=== PATIENT | female | born 1960 | race Caucasian/White ===

== ENCOUNTER 2018-10-20 05:23 | Emergency (ER) | payer MEDICARE, MEDICAID ==
[~2018-10-20] VITALS: Ht 162.6 cm; Wt 68.5 kg
[~2018-10-20 05:23] MED LIST: CLON0.5T PO; CLON0.5T11 PO; ILOP12TA2 PO; LAMO150T2 PO; OLAN5TAB3 PO; RISP2TAB3 PO; RISP4TAB2 PO; lithium
--- NOTE | 2018-10-20 05:59 | PHYS DOC ---
Past History Past Medical History: Asthma, Depression, Other (ADELFO YANES DO) Past Surgical History: Hysterectomy, Other (ADELFO YANES DO) Smoking: Cigarettes Alcohol Use: None Drug Use: None (ADELFO YANES DO) Adult General Chief Complaint Chief Complaint: ABDOMINAL PAIN [facility] HPI 57-year-old female presents via EMS with left lower quadrant abdominal pain. The patient states she began to get point tenderness in her left inguinal region that started yesterday. She does not remember doing anything in particular that caused the pain. The pain is mild not directly palpating. When you touch the area it is moderate in intensity. She denies fever or chills. She' s had no change in her bowel or bladder habits. She is on psychiatric medications and has been taking all medicines. (ADELFO YANES DO) Review of Systems Review of Systems Constitutional: Denies fever or chills [] Eyes: Denies change in visual acuity, redness, or eye pain [] HENT: Denies nasal congestion or sore throat [] Respiratory: Denies cough or shortness of breath [] Cardiovascular: No additional information not addressed in HPI [] GI: Left lower quadrant abdominal pain. Denies nausea, vomiting, bloody stools or diarrhea [] : Denies dysuria or hematuria [] Musculoskeletal: Denies back pain or joint pain [] Integument: Denies rash or skin lesions [] Neurologic: Denies headache, focal weakness or sensory changes [] Endocrine: Denies polyuria or polydipsia [] All other systems were reviewed and found to be within normal limits, except as documented in this note. (ADELFO YANES DO) Allergies Allergies Allergies Coded Allergies Type Severity Reaction Last Updated Verified chlorpromazine Allergy Intermediate Rash 07/01/16 Yes (ADELFO YANES DO) Physical Exam Physical Exam Constitutional: Well developed, well nourished, no acute distress, non-toxic appearance. [] HENT: Normocephalic, atraumatic, bilateral external ears normal, oropharynx moist, no oral exudates, nose normal. [] Eyes: PERRLA, EOMI, conjunctiva normal, no discharge. [] Neck: Normal range of motion, no tenderness, supple, no stridor. [] Cardiovascular:Heart rate regular rhythm, no murmur [] Lungs & Thorax: Bilateral breath sounds clear to auscultation [] Abdomen: Bowel sounds normal, soft, no pulsatile masses. Point tenderness over the left inguinal ligament area. No erythema or warmth. [] Skin: Warm, dry, no erythema, no rash. [] Back: No tenderness, no CVA tenderness. [] Extremities: No tenderness, no cyanosis, no clubbing, ROM intact, no edema. [] Neurologic: Alert and oriented X 3, normal motor function, normal sensory function, no focal deficits noted. [] Psychologic: Affect normal, judgement normal, mood normal. [] (ADELFO YANES DO) EKG EKG [] (ADELFO YANES DO) Radiology/Procedures Radiology/Procedures [] (ADELFO YANES DO) Course & Med Decision Making Course & Med Decision Making Pertinent Labs and Imaging studies reviewed. (See chart for details) The patient's labs and CT scan are pending. I am signing the patient out to Dr. Schwab at 0600. [] (ADELFO YANES DO) Course & Med Decision Making Evaluation of patient in ER showed 57-year-old female patient with complaining of left lower quadrant pain. Patient did not have bulging mass in the left inguinal area but CT showed a small bowel obstruction secondary to left inguinal hernia. Dr. Amezquita accepted admission to [facility] [id number] and on-call surgeon Dr. Max informed at 0 820. She became anxious after information for transferring [facility] and wanted to leave AMA but after talking to the patient and give her Ativan she agreed to stay. (CLAUDIA SCHWAB MD) Dragon Disclaimer Dragon Disclaimer This electronic medical record was generated, in whole or in part, using a voice recognition dictation system. (ADEFLO YANES DO) Departure Departure: Impression: Primary Impression: Small bowel obstruction Additional Impressions: Incarcerated left inguinal hernia Abdominal pain Schizoaffective disorder Dehydration Disposition: 02 XFER SHT-TRM HOSP (at 0805) Admitting Physician: Ronak Amezquita (accepted transfer to [facility] at 0804) (CLAUDIA SCHWAB MD) Condition: IMPROVED Referrals: SHANNON BALL APRN (PCP) Problem Qualifiers ADELFO YANES DO Oct 20, 2018 05:59 CLAUDIA SCHWAB MD Oct 20, 2018 07:46
[2018-10-20] MEDS ORDERED: ONDANSETRON PF 4 MG/2 ML VIAL. IV ONE (06:00)
[2018-10-20] MEDS ORDERED: IV NORMAL SALINE 1,000ML 1,000 ML IV ONE ×2 (06:00→08:15)
[2018-10-20 06:06] LABS: BASO # 0.1 x10^3/uL (0.0-0.2); BASO % 1 % (0-3); EOS # 0.1 x10^3/uL (0.0-0.7); EOS % 1 % (0-3); HEMATOCRIT 36.9 % (36.0-47.0); HEMOGLOBIN 12.3 g/dL (12.0-15.5); LYMPH # 1.8 x10^3/uL (1.0-4.8); LYMPH % 36 % (24-48); MEAN CORPUSCULAR HEMOGLOBIN 31 pg (25-35); MEAN CORPUSCULAR HGB CONC 33 g/dL (31-37); MEAN CORPUSCULAR VOLUME 93 fL (79-100); MONO # 0.6 x10^3/uL (0.0-1.1); MONO % 12 % (0-9); NEUT # 2.5 x10^3uL (1.8-7.7); NEUT % 51 % (31-73); PLATELET COUNT 383 x10^3/uL (140-400); RED BLOOD COUNT 3.98 x10^6/uL (3.50-5.40); RED CELL DISTRIBUTION WIDTH 15.3 % (11.5-14.5); WHITE BLOOD COUNT 4.9 x10^3/uL (4.0-11.0)
[2018-10-20 06:14] LABS: ALBUMIN 2.9 g/dL (3.4-5.0); ALBUMIN/GLOBULIN RATIO 0.8 (1.0-1.7); CALCIUM 8.4 mg/dL (8.5-10.1); CREATININE 0.9 mg/dL (0.6-1.0); GFR 64.5; POTASSIUM 4.3 mmol/L (3.5-5.1); TOTAL BILIRUBIN 0.4 mg/dL (0.2-1.0); TOTAL PROTEIN 6.4 g/dL (6.4-8.2)
[2018-10-20] MEDS ORDERED: CONTRAST GIVEN MC PRN (06:15)
[2018-10-20] MEDS ORDERED: IOHEXOL 300 MG/ML 75 ML VIAL. IV ONE (06:15)
[2018-10-20 06:57] LABS: BARBITURATES NEG (NEG); BENZODIAZEPINES NEG (NEG); CANNABINOIDS NEG (NEG); COCAINE NEG (NEG); METHADONE NEG (NEG); OPIATES NEG (NEG); PHENCYCLIDINE NEG (NEG)
[2018-10-20 07:01] LABS: AMPHETAMINE/METHAMPHETAMINE NEG (NEG)
[2018-10-20 07:02] LABS: BILIRUBIN,URINE NEG (NEG); CLARITY,URINE CLEAR; COLOR,URINE YELLOW; GLUCOSE,URINE NEG (NEG)
[2018-10-20 07:03] LABS: BACTERIA,URINE 0 /HPF (0-FEW); NITRITE,URINE NEG (NEG); RBC,URINE 0 /HPF (0-2); SQUAMOUS EPITHELIAL CELL,UR OCC /LPF; UROBILINOGEN,URINE 0.2 mg/dL (0.2 mg/dL); WBC,URINE OCC /HPF (0-4)
[2018-10-20] MEDS ORDERED: KETOROLAC 30 MG/ML VIAL. IV ONE (07:30)
[2018-10-20] MEDS ORDERED: KETOROLAC 30 MG/ML VIAL. ONE (07:33)
--- NOTE | 2018-10-20 07:59 | RAD ---
CT study of the abdomen and pelvis with contrast Clinical indications: Left lower quadrant abdominal pain. TECHNIQUE: After IV infusion of 75 cc of Omnipaque 300, helical CT scanning of the abdomen and pelvis was performed. No GI contrast was administered. This may decrease the sensitivity to detect GI tract pathology. PQRS compliance Statement One or more of the following individualized dose reduction techniques were utilized for this study: 1. Automated exposure control 2. Adjustment of the mA and/or kV according to patient size 3. Use of iterative reconstruction technique COMPARISON: October 18, 2012. FINDINGS: The liver and spleen and pancreas are normal. The gallbladder is surgically absent. No extra hepatic biliary ductal dilatation is seen. No adrenal mass is seen. Both kidneys are normal without hydronephrosis or hydroureter. Urinary bladder wall is smooth. No focal aneurysmal dilatation of the abdominal aorta is seen. No enlarged abdominal or pelvic lymphadenopathy is evident. A left inguinal hernia is seen containing a loop of small bowel. Bowel loops are dilated proximal to this point. Findings are consistent with a small bowel obstruction. Moderate amount of fecal retention is seen throughout the colon. No free fluid or free air or mesenteric edema is seen. The appendix is normal. No lung base consolidation is evident. Grade 1 anterolisthesis of L5-S1 is seen secondary to bilateral spondylolysis of L5. IMPRESSION: Small bowel obstruction secondary to a left inguinal hernia which contains a loop of small bowel. Electronically signed by: Mich Larson MD (10/20/2018 7:54 AM) [facility]
[2018-10-20] MEDS ORDERED: LORazepam 2 MG/ML VIAL ONE (08:13)
[2018-10-20] MEDS ORDERED: LORazepam 2 MG/ML VIAL IV ONE (08:15)
[2018-10-20 08:41] VITALS: BP 112/78
== END 2018-10-20 08:53 | disposition short-term general hospital (02) ==
LOC: ER 05:23
DX: K40.30 Unilateral inguinal hernia, with obstruction, without gangrene, not specified as recurrent (principal); F25.9 Schizoaffective disorder, unspecified; E86.0 Dehydration; J45.909 Unspecified asthma, uncomplicated; F32.9 Major depressive disorder, single episode, unspecified; F17.210 Nicotine dependence, cigarettes, uncomplicated; Z90.710 Acquired absence of both cervix and uterus; Z88.8 Allergy status to other drugs, medicaments and biological substances
CPT/HCPCS: 36415; 74177; 80053; 80307; 81001; 85025; 96361; 96374; 96375; 99285; J1885; J2060; Q9967; J7030

== ENCOUNTER 2018-11-15 17:34 | Emergency (ER) | payer MEDICARE, MEDICAID ==
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
[2018-11-15] MEDS ORDERED: IV RINGERS SOLUTION,LACTATED 1,000 ML IV SCH (18:18)
[2018-11-15 18:39] LABS: BASO # 0.1 x10^3/uL (0.0-0.2); BASO % 2 % (0-3); EOS % 1 % (0-3); HEMATOCRIT 42.3 % (36.0-47.0); HEMOGLOBIN 14.1 g/dL (12.0-15.5); LYMPH # 1.8 x10^3/uL (1.0-4.8); LYMPH % 43 % (24-48); MEAN CORPUSCULAR HEMOGLOBIN 31 pg (25-35); MEAN CORPUSCULAR HGB CONC 33 g/dL (31-37); MEAN CORPUSCULAR VOLUME 93 fL (79-100); MONO # 0.5 x10^3/uL (0.0-1.1); MONO % 11 % (0-9); NEUT # 1.8 x10^3uL (1.8-7.7); NEUT % 44 % (31-73); PLATELET COUNT 357 x10^3/uL (140-400); RED BLOOD COUNT 4.53 x10^6/uL (3.50-5.40); WHITE BLOOD COUNT 4.2 x10^3/uL (4.0-11.0)
[2018-11-15 18:56] LABS: ALBUMIN 3.4 g/dL (3.4-5.0); CALCIUM 9.4 mg/dL (8.5-10.1); CREATININE 0.8 mg/dL (0.6-1.0); DIRECT BILIRUBIN 0.1 mg/dL (0.0-0.2); GFR 73.7; POTASSIUM 4.2 mmol/L (3.5-5.1); TOTAL BILIRUBIN 0.6 mg/dL (0.2-1.0); TOTAL PROTEIN 7.3 g/dL (6.4-8.2)
[2018-11-15 20:10] LABS: SEDIMENTATION RATE 20 (0-25)
[2018-11-15 20:23] LABS: BARBITURATES NEG (NEG); BENZODIAZEPINES NEG (NEG); CANNABINOIDS NEG (NEG); COCAINE NEG (NEG); METHADONE NEG (NEG); OPIATES NEG (NEG); PHENCYCLIDINE NEG (NEG)
[2018-11-15 20:28] LABS: AMPHETAMINE/METHAMPHETAMINE NEG (NEG)
[2018-11-15 20:40] LABS: BACTERIA,URINE 0 /HPF (0-FEW); BILIRUBIN,URINE NEG (NEG); CLARITY,URINE HAZY; COLOR,URINE YELLOW; GLUCOSE,URINE NEG (NEG); NITRITE,URINE NEG (NEG); RBC,URINE 0 /HPF (0-2); SQUAMOUS EPITHELIAL CELL,UR OCC /LPF; UROBILINOGEN,URINE 0.2 mg/dL (0.2 mg/dL)
[2018-11-15 20:41] LABS: WBC,URINE OCC /HPF (0-4)
--- NOTE | 2018-11-15 22:31 | EKG ---
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 Electronically Signed On 11-18-2018 10:51:23 STOCK CONTROL SUPERVISOR by Pa Myles
[2018-11-16 03:15] VITALS: BP 169/83
--- NOTE | 2018-11-16 07:40 | RAD ---
PROCEDURE: PORTABLE CHEST 1V CLINICAL INDICATION: WHEEZE.PATIENT WOULD NOT ALLOW FOR REMOVAL OF BRA. COMPARISON: None FINDINGS: No pneumothorax identified. Cardiac and mediastinal contours unremarkable. No pulmonary consolidation or acute airspace disease. No acute osseous abnormalities identified. IMPRESSION: No pulmonary consolidation or acute airspace disease. Electronically signed by: Kenny Burnette DO (11/16/2018 7:37 AM) [facility]
== END 2018-11-16 04:27 | disposition short-term general hospital (02) ==
LOC: ER 17:34
DX: F23 Brief psychotic disorder (principal); F20.9 Schizophrenia, unspecified; F31.9 Bipolar disorder, unspecified; J45.909 Unspecified asthma, uncomplicated; R41.0 Disorientation, unspecified; F41.9 Anxiety disorder, unspecified; F17.210 Nicotine dependence, cigarettes, uncomplicated; Z88.8 Allergy status to other drugs, medicaments and biological substances
CPT/HCPCS: 36415; 71045; 80048; 80076; 80307; 81001; 82550; 83690; 83735; 83880; 84443; 84484; 85025; 85610; 85651; 85730; 93005; 96360; 99285; J7120; P9612

== ENCOUNTER 2019-02-02 20:05 | Emergency (ER) | payer MEDICARE, MEDICAID ==
[~2019-02-02] VITALS: Ht 162.6 cm; Wt 67.6 kg
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
[2019-02-02 20:19] VITALS: BP 162/85
== END 2019-02-02 20:31 | disposition left against medical advice (07) ==
LOC: ER 20:10
DX: M54.40 Lumbago with sciatica, unspecified side (principal); G89.29 Other chronic pain; F31.9 Bipolar disorder, unspecified; F20.9 Schizophrenia, unspecified; J45.909 Unspecified asthma, uncomplicated; F17.210 Nicotine dependence, cigarettes, uncomplicated; Z88.8 Allergy status to other drugs, medicaments and biological substances
CPT/HCPCS: 99281; 99283

== ENCOUNTER 2020-04-21 16:15 | Inpatient (IN) | payer MEDICARE, MEDICAID ==
[~2020-04-21] VITALS: Ht 162.6 cm; Wt 66.7 kg
[~2020-04-21 16:15] MED LIST changes: -CLON0.5T11 PO; +CLON0.5T4 PO; -LAMO150T2 PO; +LAMO150T4 PO
[2020-04-21] MEDS ORDERED: IV NORMAL SALINE 1,000ML 1,000 ML IV ONE ×2 (16:30→19:15)
[2020-04-21] MEDS ORDERED: KETOROLAC 30 MG/ML VIAL. IVP ONE (17:15)
[2020-04-21] MEDS ORDERED: MORPHINE SULFATE 2 MG/ML DISP.SYRIN. IV ONE (17:15)
[2020-04-21] MEDS ORDERED: ONDANSETRON PF 4 MG/2 ML VIAL. IVP ONE (17:15)
[2020-04-21 17:43] LABS: BASO # 0.1 x10^3/uL (0.0-0.2); BASO % 1 % (0-3); EOS % 0 % (0-3); HEMOGLOBIN 13.6 g/dL (12.0-15.5); LYMPH # 2.3 x10^3/uL (1.0-4.8); LYMPH % 20 % (24-48); MEAN CORPUSCULAR HEMOGLOBIN 32 pg (25-35); MEAN CORPUSCULAR HGB CONC 33 g/dL (31-37); MEAN CORPUSCULAR VOLUME 97 fL (79-100); MONO # 1.4 x10^3/uL (0.0-1.1); MONO % 13 % (0-9); NEUT # 7.5 x10^3uL (1.8-7.7); NEUT % 66 % (31-73); PLATELET COUNT 219 x10^3/uL (140-400); RED BLOOD COUNT 4.22 x10^6/uL (3.50-5.40); RED CELL DISTRIBUTION WIDTH 14.5 % (11.5-14.5); WHITE BLOOD COUNT 11.3 x10^3/uL (4.0-11.0)
--- NOTE | 2020-04-21 17:45 | PHYS DOC ---
Past History Past Medical History: Asthma, Bipolar, Cancer, Depression, Schizophrenia, Other Past Surgical History: Hysterectomy, Other Smoking: Cigarettes Alcohol Use: None Drug Use: None General Adult EDM: Chief Complaint: LOWER EXT PAIN HPI: HPI: 59-year-old female presents via EMS for being outside. Patient left her nursing care facility yesterday AMA. She walked around all night long and was walking around today. She just wanted to go back to house here in [place]. She was picked up by EMS wet and fatigued, but alert, oriented and acting normally. She is reported to have schizophrenia, but the patient denies this. She denies any hallucinations at this time. Her only complaint is that her feet hurt from walking around. She was wearing shoes that are now wet. It is unclear if the patient has a place to go. Review of Systems: Review of Systems: Constitutional: Denies fever or chills Eyes: Denies change in visual acuity HENT: Denies nasal congestion or sore throat Respiratory: Denies cough or shortness of breath Cardiovascular: Denies chest pain or edema GI: Denies abdominal pain, nausea, vomiting, bloody stools or diarrhea : Denies dysuria Musculoskeletal: Bilateral foot pain Integument: Denies rash Neurologic: Denies headache, focal weakness or sensory changes Endocrine: Denies polyuria or polydipsia Lymphatic: Denies swollen glands Psychiatric: Denies depression or anxiety Heart Score: Risk Factors: Risk Factors: DM, Current or recent (<one month) smoker, HTN, HLP, family history of CAD, obesity. Risk Scores: Score 0 - 3: 2.5% MACE over next 6 weeks - Discharge Home Score 4 - 6: 20.3% MACE over next 6 weeks - Admit for Clinical Observation Score 7 - 10: 72.7% MACE over next 6 weeks - Early Invasive Strategies Current Medications: Current Meds: Current Medications Medications (Trade) Dose Ordered Sig/Rolf Start Time Stop Time Status Last Admin Dose Admin Ketorolac Tromethamine (Toradol 30mg Vial) 30 mg 1X ONCE 04/21/20 17:15 04/21/20 17:32 DC Morphine Sulfate (Morphine 2mg Syringe) 2 mg 1X ONCE 04/21/20 17:15 04/21/20 17:32 DC Ondansetron HCl (Zofran) 4 mg 1X ONCE 04/21/20 17:15 04/21/20 17:32 DC Sodium Chloride 1,000 ml @ 1,000 mls/hr 1X ONCE 04/21/20 16:30 04/21/20 17:29 DC 04/21/20 17:24 1,000 MLS/HR Allergies: Allergies: Allergies Coded Allergies Type Severity Reaction Last Updated Verified chlorpromazine Allergy Intermediate Rash 07/01/16 Yes Physical Exam: PE: Constitutional: Well developed, well nourished, no acute distress, non-toxic appearance. [] HENT: Normocephalic, atraumatic, bilateral external ears normal, oropharynx moist, no oral exudates, nose normal. [] Eyes: PERRLA, EOMI, conjunctiva normal, no discharge. [] Neck: Normal range of motion, no tenderness, supple, no stridor. [] Cardiovascular:Heart rate regular rhythm, no murmur [] Lungs & Thorax: Bilateral breath sounds clear to auscultation [] Abdomen: Bowel sounds normal, soft, no tenderness, no masses, no pulsatile masses. [] Skin: Warm, dry, no erythema, no rash. [] Back: No tenderness, no CVA tenderness. [] Extremities: No tenderness, no cyanosis, no clubbing, ROM intact, no edema. [] Neurologic: Alert and oriented X 3, normal motor function, normal sensory function, no focal deficits noted. [] Psychologic: Affect normal, judgement normal, mood normal. [] EKG: EKG: [] Radiology/Procedures: Radiology/Procedures: [] Course & Med Decision Making: Course & Med Decision Making Pertinent Labs and Imaging studies reviewed. (See chart for details) The patient's creatinine is 1.8. This is a significant change from her baseline according to her records. This is likely due to acute dehydration. I have given her a liter normal saline in the emergency room. I will admit her to the hospital for further hydration and management. I spoke with Dr. Amezquita and he has accepted the patient for admission. Patient has refused to be admitted. I asked her where she is gone ago and she insists that she has property to go to. The patient is alert and oriented. I do not feel that I can force her to stay here. We will attempt to give her an additional liter of fluid. Then she will be discharged. The patient has changed her mind again and has agreed to be admitted to the hospital. Dr. Amezquita is aware. I have given the patient 2 mg of Ativan IV as well as a nicotine patch. [] Dayne Disclaimer: Dayne Disclaimer: This electronic medical record was generated, in whole or in part, using a voice recognition dictation system. Departure Departure: Impression: Primary Impression: Dehydration Additional Impression: Acute kidney injury Disposition: HOME/RESIDENCE PRIOR TO ADM Condition: STABLE Referrals: SHANNON BALL APRN (PCP) Justification of Admission: Justification of Admission: Justification of Admission Dx: Comment: Comments: Acute kidney injury, dehydration ADELFO YANES DO Apr 21, 2020 17:45
[2020-04-21 17:54] LABS: CALCIUM 9.2 mg/dL (8.5-10.1); CREATININE 1.8 mg/dL (0.6-1.0); GFR 28.8; POTASSIUM 4.4 mmol/L (3.5-5.1)
[2020-04-21 18:00] LABS: ALBUMIN 4.2 g/dL (3.4-5.0); ALBUMIN/GLOBULIN RATIO 1.1 (1.0-1.7); TOTAL BILIRUBIN 1.1 mg/dL (0.2-1.0)
[2020-04-21 18:02] LABS: BILIRUBIN,URINE NEG (NEG); CLARITY,URINE CLEAR; COLOR,URINE YELLOW; GLUCOSE,URINE NEG (NEG)
[2020-04-21 18:03] LABS: BACTERIA,URINE 0 /HPF (0-FEW); HYALINE CASTS, URINE FEW /HPF; NITRITE,URINE NEG (NEG); RBC,URINE OCC /HPF (0-2); SQUAMOUS EPITHELIAL CELL,UR OCC /LPF; UROBILINOGEN,URINE 0.2 mg/dL (0.2 mg/dL); WBC,URINE OCC /HPF (0-4)
[2020-04-21] MEDS ORDERED: NICOTINE 21MG PATCH. TD ONE (18:45)
[2020-04-21 19:56] LABS: % LYMPHS 24 % (24-48); % MONOS 10 % (0-10); % SEGS 66 % (35-66); PLT ESTIMATE ADEQUATE (ADEQUATE)
[2020-04-21 21:59] VITALS: BP 108/66
--- NOTE | 2020-04-21 22:46 | NUR ---
The patient, COLLIN TEMPLE, 59 y/o, F admitted by DUYEN HURTADO MD, was given written information regarding hospital policies, unit procedures and contact persons. Valuables were checked and left in room with pt. Nursing Note The patient arrived via EMS. The patient is alert and oriented to self, Year, ant that she is in [place]. The patient appears to have walked from [facility] where she is a resident a a usp. The patient is aware that walking a distance like that is unsafe however the patient was unable to give a safe plan for what she would do upon arrival to [place]. The patient states "I have land here in [place] and if I don't have a house to stay in I will just stay outside but the rain might be a problem." The patient acknowledges that this is an unsafe plan. The patient skin appears intact however she appears to have a reddened area/rash on her chest. The patient states "The rash is from the radiation"; at this time this nurse cannot verify if the patients statement regarding the rash is correct. Lung sounds are clear upon initial assessment with no difficulty with respirations, patient states that she has a cough from time to time and that it occasionally produces a brown/red colored solution(none noted at this time). The patient has active bowel sounds x4 and states she has had x1 BM in the last 24 hours but states she feels constipated however she states she would like to wait until the morning before trying a laxative. The patient states that she has urgency with urinating upon awaking. Heart sounds are regular and pulses are equal x4 extremities. Patient did not arrive with current med list however this nurse contacted the facility that she currently resides at( [facility] ) and they have been provided with our fax number to provide a current med list. The patient is currently resting in her bed in her room.
[2020-04-21 23:34] VITALS: BP 114/67
[2020-04-21] MEDS ORDERED: IV NORMAL SALINE 1,000ML 1,000 ML IV SCH (23:45)
[2020-04-22] MEDS: IV NORMAL SALINE 1,000ML 1,000 ML IV SCH ×2 (02:30→08:17)
--- NOTE | 2020-04-22 02:53 | NUR ---
Call placed to [facility] to obtain current medication list. Message left for note.
[2020-04-22] MEDS ORDERED: ZIPR20VI IM (05:13)
[2020-04-22] MEDS ORDERED: GABA100C81 PO (05:13)
[2020-04-22] MEDS ORDERED: ARIP10TA9 PO (05:13)
[2020-04-22] MEDS ORDERED: RISP3TAB3 PO (05:13)
[2020-04-22] MEDS ORDERED: DOCU-109 PO (05:13)
[2020-04-22] MEDS ORDERED: CARI4.5C PO (05:13)
[2020-04-22] MEDS ORDERED: LINA145C PO (05:13)
[2020-04-22] MEDS ORDERED: QUET100T4 PO (05:13)
[2020-04-22] MEDS ORDERED: ACET325T9 PO (05:13)
[2020-04-22] MEDS ORDERED: LORA-254 PO (05:13)
[2020-04-22 06:10] LABS: BASO # 0.1 x10^3/uL (0.0-0.2); BASO % 1 % (0-3); EOS # 0.1 x10^3/uL (0.0-0.7); EOS % 2 % (0-3); LYMPH # 2.1 x10^3/uL (1.0-4.8); LYMPH % 36 % (24-48); MEAN CORPUSCULAR HEMOGLOBIN 32 pg (25-35); MEAN CORPUSCULAR HGB CONC 33 g/dL (31-37); MEAN CORPUSCULAR VOLUME 97 fL (79-100); MONO # 0.6 x10^3/uL (0.0-1.1); MONO % 10 % (0-9); NEUT % 51 % (31-73); PLATELET COUNT 204 x10^3/uL (140-400); RED BLOOD COUNT 4.02 x10^6/uL (3.50-5.40); RED CELL DISTRIBUTION WIDTH 14.5 % (11.5-14.5); WHITE BLOOD COUNT 5.9 x10^3/uL (4.0-11.0)
[2020-04-22 06:33] LABS: ALBUMIN 3.4 g/dL (3.4-5.0); CALCIUM 8.5 mg/dL (8.5-10.1); CREATININE 1.1 mg/dL (0.6-1.0); GFR 50.8; POTASSIUM 3.7 mmol/L (3.5-5.1); TOTAL BILIRUBIN 1.2 mg/dL (0.2-1.0); TOTAL PROTEIN 6.9 g/dL (6.4-8.2)
[2020-04-22] MEDS ORDERED: ZIPRASIDONE IM 20 MG VIAL. IM PRN (07:45)
[2020-04-22] MEDS ORDERED: LORazepam 0.5 MG TABLET PO PRN (08:15)
[2020-04-22] MEDS ORDERED: ARIPiprazole 10 MG TABLET PO SCH (09:00)
[2020-04-22] MEDS ORDERED: GABAPENTIN 100 MG CAPSULE. PO SCH (09:00)
[2020-04-22] MEDS ORDERED: DOCUSATE SODIUM 100 MG CAPSULE PO SCH (09:00)
[2020-04-22] MEDS ORDERED: QUEtiapine 100 MG TABLET. PO SCH (09:00)
[2020-04-22] MEDS ORDERED: CARIPRAZINE HYDROCHLORIDE 4.5 MG PO SCH (09:00)
[2020-04-22] MEDS ORDERED: ACETAMINOPHEN 325 MG TABLET PO SCH (09:00)
--- NOTE | 2020-04-22 09:00 | NUR ---
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 HARSHA KERR.
--- NOTE | 2020-04-22 10:00 | NUR ---
NURSING NOTE TACOS PT HAS BEEN UP IN THE HALLWAY THIS AM, STATING THAT SHE IS LEAVING, WANTS HER CLOTHES AND SHOES. PT PULLED OFF RETURN AGENT AIRPORT THIS AM AND TOOK OUT HER IV. PT PUT ON HER CLOTHES AND SHOES AND STATED SHE WAS LEAVING AND WAS HEADED FOR THE DOOR. PT HAS BEEN TOLD ABOUT THE RISKS AND CONSEQUENCES INVOLVED IN LEAVING THE HOSPITAL AT THIS TIME, THE BENEFITS OF CONTINUED TREATMENT AND HOSPITALIZATIONS. PT ESCORTED OUT BY SECURITY THIS AM. HARSHA KERR.
[2020-04-22] MEDS ORDERED: LUBIPROSTONE 24 MCG CAPSULE PO SCH (17:00)
[2020-04-22] MEDS ORDERED: risperiDONE 1 MG TABLET. PO SCH (21:00)
== END 2020-04-22 10:00 | disposition left against medical advice (07) | DRG 684 ==
LOC: ER 16:15 → 1 SOUTH 18:30 → ER 21:33
PROVIDERS: ADMIT Internal Medicine; ATTEND Internal Medicine
DX: N17.9 Acute kidney failure, unspecified (principal); E86.0 Dehydration; F20.9 Schizophrenia, unspecified; J45.909 Unspecified asthma, uncomplicated; Z87.891 Personal history of nicotine dependence; Z90.710 Acquired absence of both cervix and uterus; F31.9 Bipolar disorder, unspecified; Z53.29 Procedure and treatment not carried out because of patient's decision for other reasons
CPT/HCPCS: 36415; 80053; 81001; 85007; 85025; 96361; 96374; 99406; J2060; 99285-25; J7030

== ENCOUNTER 2020-04-23 04:05 | Emergency (ER) | payer MEDICARE, MEDICAID ==
[~2020-04-23] VITALS: Ht 162.6 cm; Wt 66.7 kg
[~2020-04-23 04:05] MED LIST changes: +ACET325T9 PO; +ARIP10TA9 PO; +CARI4.5C PO; +DOCU-109 PO; +GABA100C81 PO; +LINA145C PO; +LORA-254 PO; +QUET100T4 PO; +RISP3TAB3 PO; +ZIPR20VI IM
--- NOTE | 2020-04-23 04:44 | PHYS DOC ---
Past History Past Medical History: Depression, Schizophrenia (CHANTALE RAI MD) Past Surgical History: No Surgical History (CHANTALE RAI MD) Smoking: Cigarettes Alcohol Use: None Drug Use: None (CHANTALE RAI MD) General Adult EDM: Chief Complaint: FOOT INJURY PAIN HPI: HPI: Patient is a 59-year-old female who presents via EMS with a chief complaint of bilateral foot pain. Patient states that she walked from [place] yesterday and is now having foot pain. Patient states her feet are wet and they have blisters and she needs gauze on her feet and new socks. According to records in the computer the patient was in the ER on the afternoon of April 21 with a similar story and was admitted to the hospital for acute kidney injury. Patient left AMA on April 22 in the morning. At that time the creatinine had normalized. Patient appears somewhat confused this and is inconsistent in her story about when she walked here from [place]. Patient repeatedly says she does not want to go back to a facility in [place]. Patient states she was at her property and walked to the police station so that she get a ride to the hospital tonight. Patient denies any fever cough or trouble breathing. Patient will not answer questions about hallucinations or suicidal ideation to me. History and physical is limited due to poor cooperation/altered mental status (CHANTALE RAI MD) Review of Systems: Review of Systems: Constitutional: Denies fever or chills Eyes: Denies change in visual acuity HENT: Denies nasal congestion or sore throat Respiratory: Denies cough or shortness of breath Cardiovascular: Denies chest pain or edema GI: Denies abdominal pain, nausea, vomiting, bloody stools or diarrhea : Denies dysuria but complains of chronic urinary incontinence Musculoskeletal: Denies back pain but complains of bilateral feet pain Integument: Denies rash Neurologic: Denies headache, focal weakness or sensory changes Endocrine: Denies polyuria or polydipsia Lymphatic: Denies swollen glands Psychiatric: Refuses to answer questions about hallucinations or suicidal ideation Review of systems Limited by altered mental status (CHANTALE RAI MD) Heart Score: Risk Factors: Risk Factors: DM, Current or recent (<one month) smoker, HTN, HLP, family history of CAD, obesity. Risk Scores: Score 0 - 3: 2.5% MACE over next 6 weeks - Discharge Home Score 4 - 6: 20.3% MACE over next 6 weeks - Admit for Clinical Observation Score 7 - 10: 72.7% MACE over next 6 weeks - Early Invasive Strategies (CHANTALE RAI MD) Allergies: Allergies: Allergies Coded Allergies Type Severity Reaction Last Updated Verified chlorpromazine Allergy Intermediate Rash 07/01/16 Yes (CHANTALE RAI MD) Physical Exam: PE: Constitutional: Disheveled, no acute distress HENT: Normocephalic, atraumatic, bilateral external ears normal, no trismus, nose normal. [] Eyes: Extraocular movement intact, no drainage or discharge Neck: Normal range of motion, no tenderness, supple, no stridor. [] Cardiovascular:Heart rate regular rhythm, Lungs & Thorax: No respiratory distress Abdomen: soft, no distention Skin: Warm, dry, no erythema, no rash. [] Scattered blisters on bilateral feet without signs of cellulitis Back: No tenderness, no CVA tenderness. [] Extremities: No tenderness, no cyanosis, no clubbing, ROM intact, no edema. [] Feet with bilateral blisters. Neurovascular intact. Neurologic: Alert and but confused to the month, confused to events of the last couple days normal motor function, normal sensory function, no focal deficits noted. [] Psychologic: Tangential ideas, confusion (CHANTALE RAI MD) Current Patient Data: Labs: Laboratory Tests Test 04/23/20 05:12 White Blood Count 7.7 x10^3/uL Red Blood Count 3.98 x10^6/uL Hemoglobin 13.2 g/dL Hematocrit 38.8 % Mean Corpuscular Volume 98 fL Mean Corpuscular Hemoglobin 33 pg Mean Corpuscular Hemoglobin Concent 34 g/dL Red Cell Distribution Width 14.0 % Platelet Count 194 x10^3/uL Neutrophils (%) (Auto) 68 % Lymphocytes (%) (Auto) 19 % Monocytes (%) (Auto) 10 % Eosinophils (%) (Auto) 2 % Basophils (%) (Auto) 1 % Neutrophils # (Auto) 5.2 x10^3uL Lymphocytes # (Auto) 1.5 x10^3/uL Monocytes # (Auto) 0.8 x10^3/uL Eosinophils # (Auto) 0.1 x10^3/uL Basophils # (Auto) 0.0 x10^3/uL (CHANTALE RAI MD) EKG: EKG: [] EKG interpreted by me normal sinus rhythm with a rate of 72 right bundle branch block normal axis nonspecific ST changes. (CHANTALE RAI MD) Radiology/Procedures: Radiology/Procedures: [] (CHANTALE RAI MD) Course & Med Decision Making: Course & Med Decision Making Pertinent Labs and Imaging studies reviewed. (See chart for details) [] 59-year-old female arrives via EMS with chief complaint of foot pain. Patient appears disheveled and disorganized. Patient has a history of schizophrenia and I feel she needs a behavioral health assessment. EKG shows right bundle branch block CBC is unremarkable. Remaining labs are pending and care will be signed over to Dr. Yanes with with follow-up on remaining labs and a behavioral health assessment. (CHANTALE RAI MD) Course & Med Decision Making The patient was getting a psychiatric evaluation. Before the screener can inform us of his/her opinion the patient left AMA. (ADELFO YANES DO) Dragon Disclaimer: Dragon Disclaimer: This electronic medical record was generated, in whole or in part, using a voice recognition dictation system. (CHANTALE RAI MD) Departure Departure: Impression: Primary Impression: Schizophrenia Additional Impression: Bilateral foot pain Disposition: 07 AGAINST MEDICAL ADVICE Condition: GUARDED Referrals: SHANNON BALL APRN (PCP) Justification of Admission: Justification of Admission: Justification of Admission Dx: N/A (CHANTALE RAI MD) CHANTALE RAI MD Apr 23, 2020 04:44 ADELFO YANES DO Apr 23, 2020 17:23
[2020-04-23 05:38] LABS: BASO % 1 % (0-3); EOS # 0.1 x10^3/uL (0.0-0.7); EOS % 2 % (0-3); HEMATOCRIT 38.8 % (36.0-47.0); HEMOGLOBIN 13.2 g/dL (12.0-15.5); LYMPH # 1.5 x10^3/uL (1.0-4.8); LYMPH % 19 % (24-48); MEAN CORPUSCULAR HEMOGLOBIN 33 pg (25-35); MEAN CORPUSCULAR HGB CONC 34 g/dL (31-37); MEAN CORPUSCULAR VOLUME 98 fL (79-100); MONO # 0.8 x10^3/uL (0.0-1.1); MONO % 10 % (0-9); NEUT # 5.2 x10^3uL (1.8-7.7); NEUT % 68 % (31-73); PLATELET COUNT 194 x10^3/uL (140-400); RED BLOOD COUNT 3.98 x10^6/uL (3.50-5.40); WHITE BLOOD COUNT 7.7 x10^3/uL (4.0-11.0)
[2020-04-23 05:43] LABS: BARBITURATES NEG (NEG); BENZODIAZEPINES NEG (NEG); BILIRUBIN,URINE NEG (NEG); CANNABINOIDS NEG (NEG); CLARITY,URINE HAZY; COCAINE NEG (NEG); COLOR,URINE YELLOW; GLUCOSE,URINE NEG (NEG); METHADONE NEG (NEG); NITRITE,URINE NEG (NEG); OPIATES NEG (NEG); PHENCYCLIDINE NEG (NEG); UROBILINOGEN,URINE 0.2 mg/dL (0.2 mg/dL)
[2020-04-23 05:44] LABS: CREATININE 0.9 mg/dL (0.6-1.0); GFR 64.1; POTASSIUM 3.9 mmol/L (3.5-5.1)
[2020-04-23 05:44] LABS: AMPHETAMINE/METHAMPHETAMINE NEG (NEG); BACTERIA,URINE 0 /HPF (0-FEW); SQUAMOUS EPITHELIAL CELL,UR MOD /LPF; WBC,URINE RARE /HPF (0-4)
[2020-04-23 05:52] LABS: ALBUMIN 3.7 g/dL (3.4-5.0); ALBUMIN/GLOBULIN RATIO 1.1 (1.0-1.7); MAGNESIUM 2.1 mg/dL (1.8-2.4); TOTAL BILIRUBIN 0.9 mg/dL (0.2-1.0); TOTAL PROTEIN 7.2 g/dL (6.4-8.2)
[2020-04-23 06:31] VITALS: BP 115/73
--- NOTE | 2020-04-23 20:28 | EKG ---
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
== END 2020-04-23 08:50 | disposition left against medical advice (07) ==
LOC: ER 04:05
DX: R41.0 Disorientation, unspecified (principal); F20.9 Schizophrenia, unspecified; M79.672 Pain in left foot; M79.671 Pain in right foot; F32.9 Major depressive disorder, single episode, unspecified; F17.210 Nicotine dependence, cigarettes, uncomplicated; Z20.828 Contact with and (suspected) exposure to other viral communicable diseases; Z88.8 Allergy status to other drugs, medicaments and biological substances
CPT/HCPCS: 36415; 80053; 80307; 81001; 83735; 85025; 93005; 99284; G0480; U0003

== ENCOUNTER 2020-04-23 11:19 | Emergency (ER) | payer MEDICARE, MEDICAID ==
[~2020-04-23] VITALS: Ht 162.6 cm; Wt 66.7 kg
--- NOTE | 2020-04-23 11:27 | PHYS DOC ---
Past History Past Medical History: Cancer, Depression, Schizophrenia (ADELFO YANES DO) Past Medical History: Anxiety, Bipolar, Schizophrenia (FRITZ MYERS MD) Past Surgical History: No Surgical History (ADELFO YANES DO) Smoking: Cigarettes Alcohol Use: None Drug Use: None (ADELFO YANES DO) Smoking: Cigarettes (FRITZ MYERS MD) General Adult EDM: Chief Complaint: PSYCH EVALUATION HPI: HPI: 59-year-old female returns the emergency room for the second time today. The patient left AMA just after her psychiatric screen before we got results. She was deemed to need involuntary admission. She was already out of the building before we were made aware of this. The patient went to an old friend's house. This friend negotiated getting the patient back to the emergency room. The patient still has flight of ideas and talks about wanting to stay in [place], but has nowhere to go and does not have a plan. She is intermittently emotional. She does not express any new complaints other than her feet hurting for walking around so much. (ADELFO YANES DO) Review of Systems: Review of Systems: Constitutional: Denies fever or chills Eyes: Denies change in visual acuity HENT: Denies nasal congestion or sore throat Respiratory: Denies cough or shortness of breath Cardiovascular: Denies chest pain or edema GI: Denies abdominal pain, nausea, vomiting, bloody stools or diarrhea : Denies dysuria Musculoskeletal: Denies back pain or joint pain Integument: Denies rash Neurologic: Denies headache, focal weakness or sensory changes Endocrine: Denies polyuria or polydipsia Lymphatic: Denies swollen glands Psychiatric: Anxious (ADELFO YANES DO) Heart Score: Risk Factors: Risk Factors: DM, Current or recent (<one month) smoker, HTN, HLP, family history of CAD, obesity. Risk Scores: Score 0 - 3: 2.5% MACE over next 6 weeks - Discharge Home Score 4 - 6: 20.3% MACE over next 6 weeks - Admit for Clinical Observation Score 7 - 10: 72.7% MACE over next 6 weeks - Early Invasive Strategies (ADELFO YANES DO) Allergies: Allergies: Allergies Coded Allergies Type Severity Reaction Last Updated Verified chlorpromazine Allergy Intermediate Rash 07/01/16 Yes (YANES,ADELFO DO) Physical Exam: PE: Constitutional: Well developed, well nourished, disheveled outer appearance, no acute distress, non-toxic appearance. [] HENT: Normocephalic, atraumatic, bilateral external ears normal, oropharynx moist, no oral exudates, nose normal. [] Eyes: PERRLA, EOMI, conjunctiva normal, no discharge. [] Neck: Normal range of motion, no tenderness, supple, no stridor. [] Cardiovascular:Heart rate regular rhythm, no murmur [] Lungs & Thorax: Bilateral breath sounds clear to auscultation [] Abdomen: Bowel sounds normal, soft, no tenderness, no masses, no pulsatile masses. [] Skin: Warm, dry, no erythema, no rash. [] Back: No tenderness, no CVA tenderness. [] Extremities: No tenderness, no cyanosis, no clubbing, ROM intact, no edema. [] Neurologic: Alert and oriented X 3, normal motor function, normal sensory function, no focal deficits noted. [] Psychologic: Affect pressured, judgment compromised, intermittently tearful, anxious, flight of ideas [] (ADELFO YANES DO) PE: Constitutional: Well developed, well nourished, anxious HENT: Normocephalic, atraumatic Eyes: Conjunctiva normal, no discharge Neck: Normal range of motion, supple Lungs & Thorax: No respiratory distress, equal chest rise and fall Neurologic: Alert, no focal deficits noted Psychologic: Affect anxious, paranoid, judgment abnormal (UMER CRISTINA DO) EKG: EKG: [] (ADELFO YANES DO) Radiology/Procedures: Radiology/Procedures: [] (ADELFO YANES DO) Course & Med Decision Making: Course & Med Decision Making Pertinent Labs and Imaging studies reviewed. (See chart for details) The patient psychiatric evaluation has placed her in an involuntary hold. I have given the patient 2 different doses of 5 mg of Haldol. The second time she is very agitated and I had added 2 mg of Ativan. She just gets worked up and talks about "needing to go" even though she realizes there is not anywhere for her to go. She has been mostly cooperative. I am signing the patient out to Dr. Cristina at 1800. He will continue care for the patient while we wait for placement. [] (ADELFO YANES DO) Course & Med Decision Making 1800- Sign out received from Dr. Yanes for psychiatric hold patient. Reports patient is currently involuntary and awaiting placement. Earlier visit labs reviewed. Patient seen and evaluated by myself. Awaiting accepting psychiatric facility/physician for transfer. Patient frequency talks out loud and becomes fixated on wanting her clothing so she can leave. 1999- Patient became more fixated on needing to leave. Patient given Ativan 2mg IVP for agitation and staff submarine warfare officer able to coax patient back into her room. 2129- Patient sleeping soundly. 8: 0400- Patient became more agitated again. Ativan 2mg provided. 599- Sign out given to Dr. Quiroga for further evaluation and further disposition. (UMER CRISTINA DO) Course & Med Decision Making Shift change, resting. Check out, still awaiting involuntary placement for Schizophrenia and Mental Status Change. 17:55. Dr. Quiroga. Pt. more agitated. State she can't sleep. Difficult to re-direct to her room. States she need s some night meds. Pt. given 2.5mg Zyprexia, 50 mg Benadryl and 2 mg Ativan po. at 2114. "God damn it.. I can't...sleep.. I .. Need to go somewhere else.. pt. requires constant supervision to prevent her from leaving room, or getting in laundry cart, crash cart, wandering the halls..." Will re dosage of Zyprexia and Ativan. 2299. "YOU GUYS DON'T BELIEVE IN [place]...".. I need my bible to read to you...you all are going to hell... I need my bible now.... Pt. again more agitated. Requires one on one to keep in the room. Re dosage of Zyprexia and Ativan 0200 hrs. Sleeping at 04:30hrs. See Dr. Quiroga notes- check out at shift change. Pt. 1915 hrs. becoming more agitated. Requires escort back to her room. Plan re dosage of Zprexia 2.5, Ativan2 and Benadryl 50. for her agitation. Still awaiting placement. Pt. 2199...hrs. Still agitated.. Requesting Tylenol. States over all she better, than last night. Requesting more blankets. Pt. pacing back and forth from her bed to nursing station. Constantly reminded to stay in her room. Pt. 2345 hrs Still agitated. If continued agitation, will repeat dosage of Zyprexia 2.5 and Ativan 2 mg. . Still awaiting placement. COVID TEST= negative Endorsed to Dr. Quiroga at shift change 0600. Pt. eventually discharged/transfer to [facility] 1800 hrs. Impression: 1. Mental Status Change 2. Psychosis Exacerbation ( Hx. Schizophrenia) (FRITZ MYERS MD) Course & Med Decision Making Patient who is been stable but here to be a involuntary hold was finally accepted for further inpatient medical management I discussed case with accepting physician, Dr. Celaya, who agreed for transfer and continued psychiatric care Patient updated on this decision for transportation for further inpatient psychiatric care Patient transported via EMS in stable condition (MERI QUIROGA DO) Dragon Disclaimer: Dragon Disclaimer: This electronic medical record was generated, in whole or in part, using a voice recognition dictation system. (ADELFO YANES DO) Departure Departure: Impression: Primary Impression: Schizophrenia Qualified Codes: F20.9 - Schizophrenia, unspecified Additional Impression: At risk for danger to others Disposition: 65 XFER TO PSYCH HOSP/UNIT ([facility] under care of Dr. Celaya) Condition: STABLE Referrals: PCP,NO (PCP) Justification of Admission: Justification of Admission: Justification of Admission Dx: N/A (ADELFO YANES DO) Justification of Admission Dx: N/A (UMER CRISTINA DO) Justification of Admission Dx: N/A (FRITZ MYERS MD) Justification of Admission Dx: Comment: (Psychosis, danger to self and others) (MERI QUIROGA DO) Dragon Disclaimer This chart was dictated in whole or in part using Voice Recognition software in a busy, high-work load, and often noisy Emergency Department environment. It may contain unintended and wholly unrecognized errors or omissions. (FRITZ MYERS MD) Dragon Disclaimer This chart was dictated in whole or in part using Voice Recognition software in a busy, high-work load, and often noisy Emergency Department environment. It may contain unintended and wholly unrecognized errors or omissions. (FRITZ MYERS MD) ADELFO YANES DO Apr 23, 2020 11:27 UMER CRISTINA DO Apr 23, 2020 19:19 FRITZ MYERS MD Apr 24, 2020 17:56 MERI QUIROGA DO Apr 26, 2020 16:53
[2020-04-23] MEDS ORDERED: HALOPERIDOL LACT 5 MG/ML VIAL. IVP ONE ×2 (11:30→15:00)
[2020-04-24] MEDS ORDERED: LORazepam 1 MG TABLET PO ONE (21:30)
[2020-04-24] MEDS ORDERED: OLANZapine 2.5 MG TABLET PO ONE ×4 (21:30→23:45)
[2020-04-24] MEDS ORDERED: diphenhydrAMINE HCL 25 MG CAPSULE PO ONE (21:30)
[2020-04-25] MEDS ORDERED: diphenhydrAMINE 50 MG/ML VIAL IVP ONE (02:15)
[2020-04-25] MEDS ORDERED: OLANZapine 2.5 MG TABLET PO ONE ×3 (02:15→22:00)
[2020-04-25] MEDS ORDERED: LORazepam 1 MG TABLET PO ONE (19:00)
[2020-04-25] MEDS ORDERED: diphenhydrAMINE HCL 25 MG CAPSULE PO ONE (19:00)
[2020-04-25] MEDS ORDERED: ACETAMINOPHEN 500 MG TABLET PO ONE (22:00)
[2020-04-26] MEDS ORDERED: LORazepam 1 MG TABLET PO ONE ×2 (00:30→18:30)
[2020-04-26] MEDS ORDERED: OLANZapine 2.5 MG TABLET PO ONE ×2 (00:30→18:30)
[2020-04-26] MEDS ORDERED: ARIPiprazole 10 MG TABLET PO SCH (11:45)
[2020-04-26] MEDS ORDERED: NICOTINE 21MG PATCH. TD ONE (14:15)
[2020-04-26] MEDS ORDERED: NICOTINE POLACRILEX GUM 2 MG GUM. BC PRN (14:15)
[2020-04-26 18:55] VITALS: BP 145/88
== END 2020-04-26 18:56 ==
LOC: ER 11:19
DX: F29 Unspecified psychosis not due to a substance or known physiological condition (principal); F20.9 Schizophrenia, unspecified; R41.82 Altered mental status, unspecified; F32.9 Major depressive disorder, single episode, unspecified; F17.210 Nicotine dependence, cigarettes, uncomplicated; Z88.8 Allergy status to other drugs, medicaments and biological substances
CPT/HCPCS: 96372; 96374; 96375; 96376; 99284; J1630; J2060